=== PATIENT | female | born 1985 | race Caucasian/White ===

== ENCOUNTER 2017-05-20 18:08 | Outpatient (CLI) | END 2017-05-20 21:57 | disposition home or self-care (01) ==

== ENCOUNTER 2017-06-04 20:25 | Inpatient (IN) | END 2017-06-07 17:29 | disposition home or self-care (01) | DRG 775 ==

== ENCOUNTER 2018-09-05 09:10 | Day surgery (SDC) | payer MEDICAID ==
[2018-09-05] VITALS (11 sets, daily range): BP systolic 114–131; BP diastolic 66–78; PULSE 60–77; RESP 12–19; Ht 149.9 cm; Wt 70.8 kg
[~2018-09-05] VITALS: Ht 149.9 cm; Wt 70.8 kg
--- NOTE | 2018-09-05 08:50 | PREOPHP ---
DATE OF ADMISSION: 09/05/2018 SUBJECTIVE: Ms. Erin Glass is a 32-year-old 4, para 4, desires permanent surgica l sterilization. PAST MEDICAL HISTORY: None. MEDICATIONS: None. PAST SURGICAL HISTORY: x1 previous , appendectomy. OBSTETRICAL HISTORY: x3 vaginal deliveries, x1 . GYNECOLOGIC HISTORY: 10, irregular 3 to 4 days. Denies any sexually transmitted infections. Sexual ly active with 1 partner. SOCIAL HISTORY: Denies any smoking, drugs or alcohol. FAMILY HISTORY: None. REVIEW OF SYSTEMS: All within normal except history of present illness. PHYSICAL EXAMINATION: HEENT: Within normal. LUNGS: CTA bilateral. CARDIOVASCULAR: Regular rhythm. ABDOMEN: Soft, nontender, negative distention. EXTREMITIES: Negative. No calf tenderness. VAGINAL: Normal external genitalia. Cervix negative CMT, negative lesions. Adnexa negative mass, n ontender bilateral. Fundus within normal limits. ASSESSMENT: Multiparity, desires permanent surgical sterilization. PLAN: Consent for laparoscopic bilateral tubal sterilization. Risks, benefits and alternatives expl ained. All questions were answered. Dictated By: STAR BOONE/MARIUSZ Conf#: [id number] DID#: [id number]
[~2018-09-05 09:10] MED LIST: PNV11TAB PO
--- NOTE | 2018-09-05 10:11 | PREAC ---
Date/Time of Note Date/Time of Note DATE: 09/05/18 TIME: 10:09 Anesthesia Eval and Record Evaluation Time Pre-Procedure Interview DATE: 09/05/18 TIME: 10:09 Age 32 Sex female NPO: 8 hrs Preoperative diagnosis elective sterilization Planned procedure Laparoscopic bilateral tubal sterilization Past Medical History Past Medical History: Includes GI: Obesity Surgery & Anesthesia Issues No known issue Meds Anticoagulation: No Beta Nydia within 24 hr: No Reason Beta Nydia not given: Pt. not on B-Nydia Discontinued Reported Medications [id number] ( 19) 1 Each Tablet, 1 TAB PO DAILY, TAB 05/20/17 Meds reviewed: Yes Allergies Coded Allergies: No Known Allergy (Unverified , 09/05/18) Allergies Reviewed: Yes Labs/Studies Labs Reviewed: Reviewed by anesthesiologist test: Negative Pre-procedure Exam Last vitals Vital Signs Date Temp Pulse Resp B/P (MAP) Pulse Ox O2 O2 Flow FiO2 Time Delivery Rate 09/05/18 96.9 60 18 127/73 100 Room Air 10:02 (91) Airway: Adequate mouth opening, Adequate thyromental dist Mallampati: Mallampati II Teeth: Normal Lung: Normal Heart: Normal ASA Physical Status ASA physical status: 2 Emergency: None Planned Anesthetic General/MAC: ETT Pre-operative Attestations Prior to commencing anesthesia and surgery, the patient was re-evaluated, there was verification of: *The patient's identity *The results of appropriate recent lab work and preoperative vital signs *The above evaluation not changing prior to induction *Anesthetic plan, risk benefits, alternative and complications discussed with patient/family; questions answered; patient/family understands, accepts and wishes to proceed. Digital Analytics Manager used KAMRAN PADILLA Sep 05, 2018 10:11
[2018-09-05] MEDS ORDERED: FENTAnyl 50 MCG/ML VIAL ONE (10:20)
[2018-09-05] MEDS ORDERED: ROCURONIUM 50 MG INJ ONE (10:20)
[2018-09-05] MEDS ORDERED: PROPOFOL 20 ML ONE (10:20)
[2018-09-05] MEDS ORDERED: MIDAZOLAM 1 MG/ML 2 ML INJ ONE (10:20)
[2018-09-05] MEDS ORDERED: ROPIVACAINE 0.5 % 30 ML VIAL ONE (10:21)
[2018-09-05] MEDS ORDERED: DEXAMETHASONE 4 MG/ML 5 ML INJ ONE (11:08)
[2018-09-05] MEDS ORDERED: METOCLOPRAMIDE 10 MG INJ ONE (11:08)
[2018-09-05] MEDS ORDERED: ONDANSETRON 4 MG INJ ONE (11:08)
[2018-09-05] MEDS ORDERED: SUGAMMADEX SODIUM 200 MG/2 ML VIAL IV ONE (11:08)
[2018-09-05] MEDS ORDERED: KETOROLAC 30 MG INJ ONE (11:08)
--- NOTE | 2018-09-05 11:11 | PD.PPDC ---
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
--- NOTE | 2018-09-05 11:14 | OPPN ---
Date/Time of Note Date/Time of Note DATE: 09/05/18 TIME: 11:12 Operative Report Planned Procedure Procedure date Sep 05, 2018 Procedure(s) laparoscopic bilateral tubal fulguration Performed by see signature line First Cook: STAR GARCIA MD 2nd First Cook none Anesthesiologist: JORGE BACK MD Pre-procedure diagnosis Multiparity, desires permanent surgical sterilization. [id number] Anesthesia Type: Ikytn6g general Post-Procedure Post-procedure diagnosis same Findings normal uterus tubes and ovaries. Estimated Blood Loss: minimal Specimen(s) none Grafts/Implant(s) none Complication(s) none STAR GARCIA MD Sep 05, 2018 11:14
--- NOTE | 2018-09-05 11:28 | PAC ---
Date/Time of Note Date/Time of Note DATE: 09/05/18 TIME: 11:28 Post-Anesthesia Notes Post-Anesthesia Note Last documented vital signs Vital Signs Date Temp Pulse Resp B/P (MAP) Pulse Ox O2 O2 Flow FiO2 Time Delivery Rate 09/05/18 96.9 60 18 127/73 100 Room Air 11:22 (91) Activity: WNL Respiratory function: WNL Cardiovascular function: WNL Mental status: Baseline Pain reasonably controlled: Yes Hydration appropriate: Yes Nausea/Vomiting absent: Yes JORGE BACK MD Sep 05, 2018 11:28
[2018-09-05] MEDS ORDERED: HYDROmorphONE 1 MG/5 ML IV SYRINGE IV PRN ×3 (11:30)
[2018-09-05] MEDS ORDERED: HYDROmorphONE 1 MG/5 ML IV SYRINGE IV ONE (11:30)
[2018-09-05] MEDS ORDERED: LABETALOL HCL 20MG INJ IV PRN (11:30)
[2018-09-05] MEDS ORDERED: OXYCODONE/ACETAMINOPHEN (5/325) TAB PO PRN (11:30)
[2018-09-05] MEDS ORDERED: ONDANSETRON 4 MG INJ IV PRN (11:30)
[2018-09-05] MEDS ORDERED: METOCLOPRAMIDE 10 MG INJ IV PRN (11:30)
[2018-09-05] MEDS ORDERED: FENTAnyl 50 MCG/ML VIAL IV PRN ×3 (11:30)
[2018-09-05] MEDS ORDERED: EPHEDrine 25 MG/5 ML SYG IV PRN (11:30)
--- NOTE | 2018-09-05 18:04 | OPR ---
DATE OF OPERATION: 09/05/2018 PRIMARY DIAGNOSIS: Multiparous, desires permanent surgical sterilization. POSTOPERATIVE DIAGNOSIS: Multiparous, desires permanent surgical sterilization. OPERATION PERFORMED: Laparoscopic bilateral tubal fulguration. SURGEON: Star Omer MD CHAINER: None. ANESTHESIA: General. COMPLICATIONS: None. ESTIMATED BLOOD LOSS: Minimal. FINDINGS: Normal uterus, tubes and ovaries. DESCRIPTION OF PROCEDURE: After explaining the risks, benefits and alternatives, the patient and con sent signed in chart, the patient was taken to the operating room where general anesthesia was obtain ed without difficulty. The patient was then examined under anesthesia and found to have a small ante verted uterus with normal adnexa. She was then placed in dorsal lithotomy position and prepared and draped in a sterile fashion. A heavy weighted speculum was then placed in the patient's vagina and a nterior lip of the cervix was grasped with a single tooth tenaculum. A HUMI uterine manipulator was then advanced into the uterus to provide means to manipulate the uterus. The speculum was then remov ed from the patient's vagina. Attention was then turned to the patient's abdomen. A 5 mm skin incis ion was made in the umbilical fold. The Veress needle was carefully introduced into the peritoneal c avity at 45 degree angle while tenting the abdominal wall. Intraperitoneal placement was confirmed b y use of water-filled syringe and intraabdominal pressure with insufflation of CO2 gas. The trocar a nd sleeve were then advanced without difficulty into the abdomen where intra-abdominal placement was confirmed by laparoscope. Pneumoperitoneum was obtained with 4 liters of CO2 gas and a 5 mm trocar a nd sleeve were then advanced without difficulty into the abdomen where intra-abdominal placement was confirmed by laparoscope. A second skin incision was made 2 cm above the symphysis pubis in the midl ine. The second trocar and sleeve were then advanced under direct visualization. A survey of the pa tient's pelvis and abdomen revealed normal anatomy. At this point, the right fallopian tube was fulg urated at multiple areas of the ampullary isthmus area with good blanching. Similarly, the left fall opian tube was fulgurated. There was no bleeding from the mesosalpinx. The instruments were then re moved from the patient's abdomen and the incision was repaired with 3-0 Vicryl. The HUMI was then re moved from the patient's vagina. No bleeding noted from the cervix. The patient tolerated the proce dure well. The patient was taken to recovery room in stable condition. Dictated By: STAR BOONE/MARIUSZ Conf#: [id number] DID#: [id number]
== END 2018-09-05 17:15 | disposition home or self-care (01) ==
LOC: SDS 09:10
PROVIDERS: ATTEND Obstetrics & Gynecology
DX: Z30.2 Encounter for sterilization (principal)
CPT/HCPCS: 58670; 84702; 85025; 86850; 86900; 86901; J1100; J1170; J1885; J2250; J2405; J2765; J2795; J3010; Z7512; Z7610